=== PATIENT | male | born 2000 | race Caucasian/White ===

== ENCOUNTER 2021-03-09 09:51 | Emergency (ER) | payer OTHER ==
[~2021-03-09] VITALS: Ht 188 cm; Wt 99.8 kg
[2021-03-09] MEDS ORDERED: CYMBALTA30 MG PO (10:06)
[2021-03-09] MEDS ORDERED: SUBVENITE150 MG PO (10:07)
[2021-03-09] MEDS ORDERED: CEPHALEXIN500 M1 PO (12:02)
== END 2021-03-09 12:29 | disposition home or self-care (01) ==
LOC: ED 09:51
PROC: 0HQGXZZ Repair Left Hand Skin, External Approach (ICD-10-PCS; principal; 2021-03-09)
DX: S62.637B Displaced fracture of distal phalanx of left little finger, initial encounter for open fracture (principal); X50.0XXA Overexertion from strenuous movement or load, initial encounter; Z79.899 Other long term (current) drug therapy
CPT/HCPCS: 12001; 73140; 99283-25; J1885